=== PATIENT | female | born 1960 | race Caucasian/White ===

== ENCOUNTER 2016-11-14 17:02 | Emergency (ER) | payer OTHER ==
[~2016-11-14] VITALS: Ht 170.2 cm; Wt 85.3 kg
[2016-11-14] MEDS ORDERED: ZYRTEC10 MG PO (17:31)
== END 2016-11-14 17:20 | disposition home or self-care (01) ==
LOC: ED 17:02
DX: Z00.8 Encounter for other general examination (principal)